=== PATIENT | male | born 2000 | race African-American/Black ===

== ENCOUNTER 2023-02-25 00:26 | Inpatient (IN) | payer SELFPAY ==
[2023-02-25] VITALS (8 sets, daily range): BP systolic 120–139; BP diastolic 69–82; PULSE 66–90; RESP 16–20; TEMP 35.8–36.7; O2SAT 96–100; BMI 30.8
[2023-02-25 01:02] LABS: MANUAL DIFF FLAG NO
[2023-02-25 01:04] LABS: Basophils Percent Auto 0.5 % (0-2); Eosinophils Absolute Auto 0.4 X10*3/uL (0.0-0.4); Eosinophils Percent Auto 6.3 % (0-4); Hematocrit 43.1 % (42.0-52.0); Imm Gran Abs Auto 0.01 X10*3/uL (0.00-0.03); Imm Gran Pct Auto 0.2 % (0.0-0.4); Lymphocytes Absolute Auto 1.6 X10*3/uL (1.2-4.9); Lymphocytes Percent Auto 26.7 % (20-40); Mean Corpuscular HGB Conc 32.5 g/dl (31.0-36.0); Mean Corpuscular Volume 86.2 fL (80.0-98.0); Mean Platelet Volume 9.7 fL (9.4-12.4); Monocytes Absolute Auto 0.3 X10*3/uL (0.1-1.2); Monocytes Percent Auto 4.4 % (2-11); Neutrophils Absolute Auto 3.6 x10*3/uL (2.0-8.3); Neutrophils Percent Auto 61.9 % (45-73); Platelet Count 196 X10*3/uL (160-400); Red Cell Distribution Width 13.8 % (11.0-16.0); White Blood Count 5.9 X10*3/uL (4.8-10.8)
[2023-02-25 01:24] LABS: Alanine Aminotransferase 64 U/L (0-40); Albumin Level 4.4 g/dL (3.5-5.0); Alkaline Phosphatase 60 U/L (39-117); Anion Gap 9 (12-20); Aspartate Amino Transferase 88 U/L (5-37); Bilirubin Direct 0.2 mg/dL (0.0-0.5); Bilirubin Total 0.4 mg/dL (0.0-1.0); Blood Urea Nitrogen 21 mg/dL (9-16); Calcium 9.2 mg/dL (8.4-10.2); Carbon Dioxide 29 mmol/L (22-29); Chloride 106 mmol/L (96-108); Creatinine Clr Calc Pharmacy 134.7; Estimated Glomerular Filt Rate > 60; Glucose Random 98 mg/dL (60-115); Lipase 18 U/L (8-78); Potassium 4.1 mmol/L (3.3-5.1); Sodium 140 mmol/L (135-145); Total Protein 7.2 g/dL (6.5-8.0)
--- NOTE | 2023-02-25 02:07 | ED_ITS ---
HPI - General Adult General Chief complaint: General Medical Stated complaint: Legs Hurting Time Seen by Provider: 02/25/23 02:07 Source: patient Mode of arrival: ambulatory Limitations: no limitations History of Present Illness HPI narrative: Patient 22 years or claiming that his been walking [place] for last few days today he walked more than 10 miles complaining of leg pain for last few days did not drink much water or had food patient is homeless no urinary complaint no substance abuse Related Data Allergies Allergy/AdvReac Type Severity Reaction Status Date / Time No Known Allergies Allergy Verified 02/25/23 00:47 Review of Systems Review of Systems: Yes all other systems are reviewed and are negative [facility] Social History Social History Advance Directives: No Advance Directives Information Provided: Yes Physical Exam ED Vital Signs: Vital Signs - 24 hr 02/25/23 00:42 02/25/23 02:07 Temperature 97.7 F 98.0 F Pulse Rate 90 81 Respiratory Rate 20 17 Blood Pressure 120/77 133/79 Pulse Oximetry 96 96 Oxygen Delivery Method Room Air BMI result Body Mass Index 30.8 Appearance: Alert. Oriented X3. No acute distress. Eyes: PERRLA, ENT: Pharynx normal. Oral Mucosa moist Neck: Normal inspection. Neck supple. CVS: Normal heart rate and rhythm. Pulses normal. Respiratory: No respiratory distress. Equal air entry bilateral, no wheezing/rales/rhonchi Abdomen: Soft and nontender. Bowel sounds are present, no mass palpable, no CVA tenderness Skin: Skin warm and dry. Normal skin color. Normal skin turgor. Extremities: No lower extremity edema. No calf tenderness Neuro: Oriented X 3. No motor deficit. No sensory deficit.No cerebellar signs , cranial nerves II-XII intact Medications Administered Generic Name Dose Route Start Last Admin Trade Name Freq PRN Reason Stop Dose Admin Enoxaparin Sodium 40 mg 02/25/23 02:30 02/25/23 03:12 Enoxaparin Sodium 40 Mg/0.4 Ml Syringe SUBCUT 40 mg Q24H JERRY Administration Sodium Chloride 1,000 mls @ 200 mls/hr 02/25/23 02:45 02/25/23 04:36 Ns IVCONT 02/25/23 07:44 200 mls/hr .Q5H JERRY Administration Discontinued Medications Generic Name Dose Route Start Last Admin Trade Name Shira PRN Reason Stop Dose Admin Sodium Chloride 1,000 mls @ 999 mls/hr 02/25/23 02:08 02/25/23 04:31 Ns IV 02/25/23 03:08 Infused .Q1H1M ONE Infusion Sodium Chloride 1,000 mls @ 999 mls/hr 02/25/23 02:35 02/25/23 04:31 Ns IV 02/25/23 03:35 Infused .Q1H1M ONE Infusion Medical Decision Making Medical Decision Making [facility] Narrative: Patient with rhabdomyolysis will admit patient for IV hydration Lab Data [facility] Lab Attestation statement: I reviewed the patient's lab results. 02/25/23 00:59 02/25/23 00:59 Labs: Lab Results 02/25/23 02/25/23 02/25/23 Range/Units 00:59 00:59 02:02 WBC 5.9 (4.8-10.8) X10*3/uL RBC 5.00 (4.60-5.80) X10*6/uL Hgb 14.0 (14.0-18.0) g/dl Hct 43.1 (42.0-52.0) % MCV 86.2 (80.0-98.0) fL MCH 28.0 (27.0-33.0) pg MCHC 32.5 (31.0-36.0) g/dl RDW 13.8 (11.0-16.0) % Plt Count 196 (160-400) X10*3/uL MPV 9.7 (9.4-12.4) fL Immature Gran % (Auto) 0.2 (0.0-0.4) % Neut % (Auto) 61.9 (45-73) % Lymph % (Auto) 26.7 (20-40) % [place] % (Auto) 4.4 (2-11) % Eos % (Auto) 6.3 H (0-4) % Baso % (Auto) 0.5 (0-2) % Lymph # (Auto) 1.6 (1.2-4.9) X10*3/uL [place] # (Auto) 0.3 (0.1-1.2) X10*3/uL Eos # (Auto) 0.4 (0.0-0.4) X10*3/uL Baso # (Auto) 0.0 (0.0-0.2) X10*3/uL Abs Immat Gran (auto) 0.01 (0.00-0.03) X10*3/uL Absolute Neuts (auto) 3.6 (2.0-8.3) x10*3/uL Absolute Nucleated RBC 0.000 (0.0-0.012) X10*3/uL Nucleated RBC % (auto) 0.0 (0.0-0.2) /100WBC Sodium 140 (135-145) mmol/L Potassium 4.1 (3.3-5.1) mmol/L Chloride 106 (96-108) mmol/L Carbon Dioxide 29 (22-29) mmol/L Anion Gap 9 L (12-20) BUN 21 H (9-16) mg/dL Creatinine 1.12 (0.5-1.4) mg/dL Estim Creat Clear Calc 134.7 Estimated GFR > 60 Random Glucose 98 (60-115) mg/dL Calcium 9.2 (8.4-10.2) mg/dL Total Bilirubin 0.4 (0.0-1.0) mg/dL Direct Bilirubin 0.2 (0.0-0.5) mg/dL AST 88 H (5-37) U/L ALT 64 H (0-40) U/L Alkaline Phosphatase 60 (39-117) U/L Total Creatine Kinase 3588 H (38-174) U/L Total Protein 7.2 (6.5-8.0) g/dL Albumin 4.4 (3.5-5.0) g/dL Lipase 18 (8-78) U/L Urine Color Yellow Urine Appearance Cloudy Urine pH 6.0 (5.0-9.0) Ur Specific [place] 1.020 (1.005-1.025) Urine Protein 100 (2+) H (Neg-Trace) mg/dL Urine Glucose (UA) Negative (Negative) mg/dL Urine Ketones Negative (Negative) mg/dL Urine Blood Trace H (Negative) Urine Nitrite Negative (Negative) Ur Leukocyte Esterase Negative (Negative) Urine RBC 0-2 (0-2) /HPF Urine WBC 6-10 H (0-5) /HPF Ur Squamous Epith Cells 0-2 (0-2) /HPF Urine Bacteria None Seen (None Seen) Hyaline Casts 0-2 (0-2) /LPF 02/25/23 02/25/23 02/25/23 Range/Units 02:39 02:39 02:39 WBC 4.6 L (4.8-10.8) X10*3/uL RBC 4.72 (4.60-5.80) X10*6/uL Hgb 13.5 L (14.0-18.0) g/dl Hct 40.2 L (42.0-52.0) % MCV 85.2 (80.0-98.0) fL MCH 28.6 (27.0-33.0) pg MCHC 33.6 (31.0-36.0) g/dl RDW 13.7 (11.0-16.0) % Plt Count 183 (160-400) X10*3/uL MPV 9.3 L (9.4-12.4) fL Immature Gran % (Auto) 0.0 (0.0-0.4) % Neut % (Auto) 57.8 (45-73) % Lymph % (Auto) 29.7 (20-40) % [place] % (Auto) 3.9 (2-11) % Eos % (Auto) 8.2 H (0-4) % Baso % (Auto) 0.4 (0-2) % Lymph # (Auto) 1.4 (1.2-4.9) X10*3/uL [place] # (Auto) 0.2 (0.1-1.2) X10*3/uL Eos # (Auto) 0.4 (0.0-0.4) X10*3/uL Baso # (Auto) 0.0 (0.0-0.2) X10*3/uL Abs Immat Gran (auto) 0.00 (0.00-0.03) X10*3/uL Absolute Neuts (auto) 2.7 (2.0-8.3) x10*3/uL Absolute Nucleated RBC 0.000 (0.0-0.012) X10*3/uL Nucleated RBC % (auto) 0.0 (0.0-0.2) /100WBC Sodium 140 (135-145) mmol/L Potassium 3.6 (3.3-5.1) mmol/L Chloride 109 H (96-108) mmol/L Carbon Dioxide 25 (22-29) mmol/L Anion Gap 10 L (12-20) BUN 20 H (9-16) mg/dL Creatinine 0.95 (0.5-1.4) mg/dL Estim Creat Clear Calc 158.8 Estimated GFR > 60 Random Glucose 118 H (60-115) mg/dL Calcium 8.8 (8.4-10.2) mg/dL Total Bilirubin (0.0-1.0) mg/dL Direct Bilirubin (0.0-0.5) mg/dL AST (5-37) U/L ALT (0-40) U/L Alkaline Phosphatase (39-117) U/L Total Creatine Kinase 3053 H (38-174) U/L Total Protein (6.5-8.0) g/dL Albumin (3.5-5.0) g/dL Lipase (8-78) U/L Urine Color Urine Appearance Urine pH (5.0-9.0) Ur Specific [place] (1.005-1.025) Urine Protein (Neg-Trace) mg/dL Urine Glucose (UA) (Negative) mg/dL Urine Ketones (Negative) mg/dL Urine Blood (Negative) Urine Nitrite (Negative) Ur Leukocyte Esterase (Negative) Urine RBC (0-2) /HPF Urine WBC (0-5) /HPF Ur Squamous Epith Cells (0-2) /HPF Urine Bacteria (None Seen) Hyaline Casts (0-2) /LPF Discharge Plan Discharge Clinical Impression: Rhabdomyolysis Patient Disposition: Admitted As Inpatient
[2023-02-25 02:09] LABS: Appearance Urine Cloudy; Color Urine Yellow; Glucose Urine UA Negative (Negative); Leukocyte Esterase Urine Negative (Negative); Nitrite Urine Negative (Negative); UMIC TRIGGER UACC YES; Urine Blood Trace (Negative); Urine Ketones Negative (Negative); Urine Protein 100 (2+) mg/dL (Neg-Trace)
[2023-02-25 02:11] LABS: Bacteria Urine None Seen (None Seen); Hyaline Casts Urine 0-2 /LPF (0-2); RBC Urine 0-2 /HPF (0-2); Squamous Epithelial Cell Urine 0-2 /HPF (0-2); UACC Culture Trigger YES
[2023-02-25] MEDS: 0.9 % Sodium Chloride 1,000 ML 999 ML IV ×2 (02:22→03:12)
--- NOTE | 2023-02-25 02:30 | P.HPHOSP_ITS ---
History of Present Illness Date of Service: 02/25/23 Chief Complaint: Bodyache This is a 22-year-old male with no pertinent past medical history and not on prescription medications who presents to the emergency department for evaluation of body ache and leg ache. Patient states it started on the day of presentati on. Patient states that he walked for more than 5 hours today without eating or drinking. Apparently he walked from [place] to [place]. Patient denies fever, chills, chest discomfort, shortness of breath, palpitations, abdominal pain, changes in urinary or bowel habits. Denied illicit drug use, alcohol use, tobacco use. In the emergency department, CK was found to be significantly elevated Review of Systems Constitutional: Constitutional: Reports fatigue, Reports lethargy and Reports malaise Cardiovascular: Cardiovascular: Reports no additional cardiovascular complaints Respiratory: Respiratory: Reports no additional respiratory complaints Gastrointestinal: Gastrointestinal: Reports no additional gastrointestinal complaints Genitourinary: Genitourinary: Reports no additional male genitourinary complaints Musculoskeletal: Musculoskeletal: Reports myalgias Endocrine: Endocrine: Reports fatigue PMFSH Pertinent family history: No family history of early CAD Social History Advance Directives: No Advance Directives Information Provided: Yes Meds Allergies Allergy/AdvReac Type Severity Reaction Status Date / Time No Known Allergies Allergy Verified 02/25/23 00:47 Active Medications: Current Medications Sodium Chloride (Ns) 1,000 mls @ 999 mls/hr IV .Q1H1M ONE Stop: 02/25/23 03:08 Last Admin: 02/25/23 02:22 Dose: 999 mls/hr Physical Exam Vital Signs and Narrative: Vital Signs: Last Vital Signs Temp 98.0 F 02/25/23 02:07 Pulse 81 02/25/23 02:07 Resp 17 02/25/23 02:07 BP 133/79 02/25/23 02:07 Pulse Ox 96 02/25/23 02:07 O2 Del Method Room Air 02/25/23 00:42 BMI result Body Mass Index 30.8 Young male lying in bed in no distress Neck supple, no JVD Regular rate and rhythm, S1-S2 heard Regular breath sounds bilaterally, no wheezing or crackles appreciated Abdomen soft nontender, no guarding, no rigidity Patient is awake, alert and oriented to self, place, time and person ; no focal motor deficit Psych: Normal mood No pedal edema Results Labs 02/25/23 00:59 02/25/23 00:59 Labs: Laboratory Results - last 24 hr 02/25/23 02/25/23 02/25/23 00:59 00:59 02:02 MCV 86.2 MCH 28.0 MCHC 32.5 RDW 13.8 Plt Count 196 MPV 9.7 Immature Gran % (Auto) 0.2 Neut % (Auto) 61.9 Lymph % (Auto) 26.7 [place] % (Auto) 4.4 Eos % (Auto) 6.3 H Baso % (Auto) 0.5 Lymph # (Auto) 1.6 [place] # (Auto) 0.3 Eos # (Auto) 0.4 Baso # (Auto) 0.0 Abs Immat Gran (auto) 0.01 Absolute Neuts (auto) 3.6 Absolute Nucleated RBC 0.000 Nucleated RBC % (auto) 0.0 Anion Gap 9 L Estim Creat Clear Calc 134.7 Estimated GFR > 60 Random Glucose 98 Calcium 9.2 Total Bilirubin 0.4 Direct Bilirubin 0.2 AST 88 H ALT 64 H Alkaline Phosphatase 60 Total Creatine Kinase 3588 H Total Protein 7.2 Albumin 4.4 Lipase 18 Urine Color Yellow Urine Appearance Cloudy Urine pH 6.0 Ur Specific [place] 1.020 Urine Protein 100 (2+) H Urine Glucose (UA) Negative Urine Ketones Negative Urine Blood Trace H Urine Nitrite Negative Ur Leukocyte Esterase Negative Urine RBC 0-2 Urine WBC 6-10 H Ur Squamous Epith Cells 0-2 Urine Bacteria None Seen Hyaline Casts 0-2 Assessment and Plan (1) Rhabdomyolysis: Status: Acute Plan This is a 22-year-old male with no pertinent past medical history and not on prescription medications who presents to the emergency department for evaluation of body ache and leg ache. #. Rhabdomyolysis, nontraumatic, exertional: Will admit patient and continue IV fluid resuscitation.? Symptomatic treatment.? Repeat CK in a.m. #. Transaminitis due to above DVT prophylaxis: Lovenox 40 mg daily Full code Regular diet Admit as inpatient and will require two night minimum hospital stay for IV fluid resuscitation and close monitoring of CPK Time Spent With Patient Time: Total time managing care of this patient today ____ minutes. Quality Stroke Does the patient have a stroke diagnosis?: No VTE Prior VTE?: No VTE Risk Level:: Medical - moderate - high VTE Device Contraindication: Treatment Not Indicated VTE Drug Contraindication: N/A - Med Ordered
[2023-02-25 02:43] LABS: MANUAL DIFF FLAG NO
[2023-02-25 02:44] LABS: Basophils Percent Auto 0.4 % (0-2); Eosinophils Absolute Auto 0.4 X10*3/uL (0.0-0.4); Eosinophils Percent Auto 8.2 % (0-4); Hematocrit 40.2 % (42.0-52.0); Hemoglobin 13.5 g/dl (14.0-18.0); Lymphocytes Absolute Auto 1.4 X10*3/uL (1.2-4.9); Lymphocytes Percent Auto 29.7 % (20-40); Mean Corpuscular HGB Conc 33.6 g/dl (31.0-36.0); Mean Corpuscular Hemoglobin 28.6 pg (27.0-33.0); Mean Corpuscular Volume 85.2 fL (80.0-98.0); Mean Platelet Volume 9.3 fL (9.4-12.4); Monocytes Absolute Auto 0.2 X10*3/uL (0.1-1.2); Monocytes Percent Auto 3.9 % (2-11); Neutrophils Absolute Auto 2.7 x10*3/uL (2.0-8.3); Neutrophils Percent Auto 57.8 % (45-73); Platelet Count 183 X10*3/uL (160-400); Red Blood Count 4.72 X10*6/uL (4.60-5.80); Red Cell Distribution Width 13.7 % (11.0-16.0); White Blood Count 4.6 X10*3/uL (4.8-10.8)
--- NOTE | 2023-02-25 02:54 | MHC.EDTECH ---
pt ambulated to restroom steady to give a urine
[2023-02-25 03:08] LABS: Anion Gap 10 (12-20); Blood Urea Nitrogen 20 mg/dL (9-16); Calcium 8.8 mg/dL (8.4-10.2); Carbon Dioxide 25 mmol/L (22-29); Chloride 109 mmol/L (96-108); Creatinine Clr Calc Pharmacy 158.8; Estimated Glomerular Filt Rate > 60; Glucose Random 118 mg/dL (60-115); Potassium 3.6 mmol/L (3.3-5.1); Sodium 140 mmol/L (135-145)
[2023-02-25] MEDS: Enoxaparin Sodium 40 MG/0.4 ML SYRINGE SUBCUT (03:12)
[2023-02-25] MEDS: 0.9 % Sodium Chloride 1,000 ML 200 ML IVCONT (04:36)
--- NOTE | 2023-02-25 08:30 | PC.NURSE ---
pt is alert and oriented, but pt appears withdrawn when conversing with this rn, some odd behaviors at times for insistence awkward smiling/laugh and skin appropriate for ethnicity, respirations even and unlabored, ls clear, pt reports bilateral leg pain 6/10, no visible swelling to the lower extremities. vs stable
[2023-02-25] MEDS: KCl 20 mEq in 5 % Dex/Lact Rin 20 MEQ/1,000 ML IV.SOLN 150 MEQ IVCONT ×3 (09:02→21:30)
[2023-02-25 09:51] LABS: Amphetamine Screen Urine Not Detected (Not Detect); Barbiturates, Urine Not Detected (Not Detect); Benzodiazepines Screen Urine Not Detected (Not Detect); Cannabinoid Screen Urine Not Detected (Not Detect); Cocaine Screen Urine Not Detected (Not Detect); Fentanyl, urine Not Detected (Not Detect); Opiate Screen Urine Not Detected (Not Detect); Phencyclidine Screen Urine Not Detected (Not Detect)
--- NOTE | 2023-02-25 10:45 | MHC.CM.PN ---
Addendum entered by Baylee Rodriguez 02/25/23 16:25: CM ATTEMPTED TO MAKE A REFERRAL TO [facility] CM SPOKE TO [facility] [phone] WHO REPORTED THEY WERE UNABLE TO HOLD BEDS AND REFERRAL MUST BE MADE ON THE DAY OF DC. SHE INDICATED CALLING AT 0930 HOURS WOULD BE BEST BEDS MAY BE FULL LATER IN THE DAY PER PN, PT LIKELY TO DC TOMORROW CM WILL REFER AT THAT TIME Original Note: PT REPORTS HE IS HOMELESS HE SAYS HE IS FROM THE [place] AND JUST CAME TO [place] HE REPORTS WALKING HERE HE SAYS HE HAS NO FAMILY OR FRIENDS HERE OR IN [place] HE HAS NO PCP HE SAYS HE HAS [place] HOWEVER IT IS NOT SHOWING UP IN HIS DEMOGRAPHICS REFERRAL SENT TO [facility] DCP TBD PT REPORTS HE MAY BE WILLING TO GO TO A [facility], BUT IT IS NOT NECESSARY HE PRESENTS VERY GUARDED AND PROVIDES LITTLE HISTORY REFERRALS WILL BE MADE TO [facility] IN CASE PT IS INTERESTED PT DID ASK FOR FOOD CM CALLED FOOD SERVICES AND REQUESTED A SANDWICH
--- NOTE | 2023-02-25 12:30 | PC.NURSE ---
called for report but awaiting a call back
--- NOTE | 2023-02-25 12:37 | PC.NURSE ---
report given to med/neurosurgeon
[2023-02-25] MEDS: Acetaminophen 325 MG TABLET 650 MG PO (14:01)
--- NOTE | 2023-02-25 14:24 | HO.PM.IMPN ---
Subjective Subjective Date of Service: 02/25/23 Interval History: Complaining of generalized ache mostly lower extremity denies fever chills, no nausea no vomiting walked from [place] to [place] , homeless, denies illicit drug use, not on home medications.. Review of Systems Review of Systems: Yes all other systems are reviewed and are negative Physical Exam Vital Signs: Vital Signs: Last Vital Signs Temp 98.1 F 02/25/23 13:26 Pulse 66 02/25/23 13:26 Resp 16 02/25/23 13:26 BP 139/69 02/25/23 13:26 Pulse Ox 98 02/25/23 13:26 O2 Del Method Room Air 02/25/23 13:26 BMI result Body Mass Index 30.8 Const: Other: General awake alert x3,in no acute distress. Neck supple no JVD. CVS regular rate rhythm, Respiratory lungs clear to auscultation, no respiratory distress, no wheeze, no rhonchi. Gastrointestinal abdomen soft, nontender, bowel sounds audible, no guarding , no rigidity. Extremities no edema. Neuro nonfocal Skin no rash Objective Data Active Medications Acetaminophen (Acetaminophen 325 Mg Tablet) 650 mg PO Q6H PRN PRN Reason: Pain, Mild (Pain Scale 1-3) Last Admin: 02/25/23 14:01 Dose: 650 mg Documented By: ESTRELLA Enoxaparin Sodium (Enoxaparin Sodium 40 Mg/0.4 Ml Syringe) 40 mg SUBCUT Q24H [facility] Last Admin: 02/25/23 03:12 Dose: 40 mg Documented By: ZOE Potassium Cl/Dextrose/Lact Ringer's (Kcl 20 Meq In 5 % Dex/Lact Rin) 20 meq in 1,000 mls @ 150 mls/hr IVCONT .Q6H40M [facility] Last Admin: 02/25/23 13:58 Dose: 150 mls/hr Documented By: ESTRELLA Melatonin (Melatonin 3 Mg Tablet) 6 mg PO BEDTIME PRN PRN Reason: Insomnia Ondansetron HCl (Ondansetron Hcl 4 Mg/2 Ml Vial) 4 mg IVPUSH Q8H PRN PRN Reason: Nausea and Vomiting Sodium Chloride (0.9 % Sodium Chloride Flush 3 Ml Syringe) 3 ml IVFLUSH QSHIFT [facility] Last Admin: 02/25/23 13:58 Dose: Not Given Documented By: ESTRELLA Non-Admin Reason: See Note Labs 02/25/23 02:39 02/25/23 02:39 Labs: Laboratory Results - last 24 hr 02/25/23 02/25/23 02/25/23 00:59 00:59 02:02 MCV 86.2 MCH 28.0 MCHC 32.5 RDW 13.8 Plt Count 196 MPV 9.7 Immature Gran % (Auto) 0.2 Neut % (Auto) 61.9 Lymph % (Auto) 26.7 [place] % (Auto) 4.4 Eos % (Auto) 6.3 H Baso % (Auto) 0.5 Lymph # (Auto) 1.6 [place] # (Auto) 0.3 Eos # (Auto) 0.4 Baso # (Auto) 0.0 Abs Immat Gran (auto) 0.01 Absolute Neuts (auto) 3.6 Absolute Nucleated RBC 0.000 Nucleated RBC % (auto) 0.0 Anion Gap 9 L Estim Creat Clear Calc 134.7 Estimated GFR > 60 Random Glucose 98 Calcium 9.2 Total Bilirubin 0.4 Direct Bilirubin 0.2 AST 88 H ALT 64 H Alkaline Phosphatase 60 Total Creatine Kinase 3588 H Total Protein 7.2 Albumin 4.4 Lipase 18 Urine Color Yellow Urine Appearance Cloudy Urine pH 6.0 Ur Specific [place] 1.020 Urine Protein 100 (2+) H Urine Glucose (UA) Negative Urine Ketones Negative Urine Blood Trace H Urine Nitrite Negative Ur Leukocyte Esterase Negative Urine RBC 0-2 Urine WBC 6-10 H Ur Squamous Epith Cells 0-2 Urine Bacteria None Seen Hyaline Casts 0-2 Urine Opiates Screen Urine Fentanyl Screen Ur Barbiturates Screen Ur Phencyclidine Scrn Ur Amphetamines Screen U Benzodiazepines Scrn Urine Cocaine Screen U Marijuana (THC) Screen 02/25/23 02/25/23 02/25/23 02:39 02:39 02:39 MCV 85.2 MCH 28.6 MCHC 33.6 RDW 13.7 Plt Count 183 MPV 9.3 L Immature Gran % (Auto) 0.0 Neut % (Auto) 57.8 Lymph % (Auto) 29.7 [place] % (Auto) 3.9 Eos % (Auto) 8.2 H Baso % (Auto) 0.4 Lymph # (Auto) 1.4 [place] # (Auto) 0.2 Eos # (Auto) 0.4 Baso # (Auto) 0.0 Abs Immat Gran (auto) 0.00 Absolute Neuts (auto) 2.7 Absolute Nucleated RBC 0.000 Nucleated RBC % (auto) 0.0 Anion Gap 10 L Estim Creat Clear Calc 158.8 Estimated GFR > 60 Random Glucose 118 H Calcium 8.8 Total Bilirubin Direct Bilirubin AST ALT Alkaline Phosphatase Total Creatine Kinase 3053 H Total Protein Albumin Lipase Urine Color Urine Appearance Urine pH Ur Specific [place] Urine Protein Urine Glucose (UA) Urine Ketones Urine Blood Urine Nitrite Ur Leukocyte Esterase Urine RBC Urine WBC Ur Squamous Epith Cells Urine Bacteria Hyaline Casts Urine Opiates Screen Urine Fentanyl Screen Ur Barbiturates Screen Ur Phencyclidine Scrn Ur Amphetamines Screen U Benzodiazepines Scrn Urine Cocaine Screen U Marijuana (THC) Screen 02/25/23 09:11 MCV MCH MCHC RDW Plt Count MPV Immature Gran % (Auto) Neut % (Auto) Lymph % (Auto) [place] % (Auto) Eos % (Auto) Baso % (Auto) Lymph # (Auto) [place] # (Auto) Eos # (Auto) Baso # (Auto) Abs Immat Gran (auto) Absolute Neuts (auto) Absolute Nucleated RBC Nucleated RBC % (auto) Anion Gap Estim Creat Clear Calc Estimated GFR Random Glucose Calcium Total Bilirubin Direct Bilirubin AST ALT Alkaline Phosphatase Total Creatine Kinase Total Protein Albumin Lipase Urine Color Urine Appearance Urine pH Ur Specific [place] Urine Protein Urine Glucose (UA) Urine Ketones Urine Blood Urine Nitrite Ur Leukocyte Esterase Urine RBC Urine WBC Ur Squamous Epith Cells Urine Bacteria Hyaline Casts Urine Opiates Screen Not Detected Urine Fentanyl Screen Not Detected Ur Barbiturates Screen Not Detected Ur Phencyclidine Scrn Not Detected Ur Amphetamines Screen Not Detected U Benzodiazepines Scrn Not Detected Urine Cocaine Screen Not Detected U Marijuana (THC) Screen Not Detected Assessment and Plan (1) Rhabdomyolysis: Status: Acute Plan 22-year-old male with no pertinent past medical history and not on prescription medications who presents to the emergency department for evaluation of body ache and leg ache. #.?Rhabdomyolysis, nontraumatic, exertional: Walked 10 hours, is homeless complaining of persistent bilateral leg discomfort and, continue IV fluids follow CPK #.?Transaminitis due to above, no abdominal pain tolerating diet no nausea vomiting follow LFTs DVT prophylaxis: Lovenox 40 mg daily Disposition homeless, informed porter sample case for possible shelters Full code Regular diet Patient will need continued inpatient hospitalization for IV fluid resuscitation and close monitoring of CPK Time Spent With Patient Time: Total time managing care of this patient today ____ minutes. Quality Stroke Does the patient have a stroke diagnosis?: No VTE Prior VTE?: No VTE Risk Level:: Medical - moderate - high VTE Device Contraindication: Treatment Not Indicated VTE Drug Contraindication: N/A - Med Ordered
[2023-02-26] MEDS: Enoxaparin Sodium 40 MG/0.4 ML SYRINGE SUBCUT (01:14)
[2023-02-26] MEDS: KCl 20 mEq in 5 % Dex/Lact Rin 20 MEQ/1,000 ML IV.SOLN 150 MEQ IVCONT (03:06)
[2023-02-26 03:44] VITALS: BP 141/97; PULSE 64; RESP 16; TEMP 36; O2SAT 96
[2023-02-26 08:00] VITALS: BP 118/69; PULSE 65; RESP 18; TEMP 35.7; O2SAT 99
[2023-02-26 08:16] LABS: Alanine Aminotransferase 52 U/L (0-40); Albumin Level 4.4 g/dL (3.5-5.0); Alkaline Phosphatase 53 U/L (39-117); Anion Gap 14 (12-20); Aspartate Amino Transferase 49 U/L (5-37); Bilirubin Direct 0.2 mg/dL (0.0-0.5); Bilirubin Total 0.5 mg/dL (0.0-1.0); Blood Urea Nitrogen 11 mg/dL (9-16); Calcium 9.5 mg/dL (8.4-10.2); Carbon Dioxide 24 mmol/L (22-29); Chloride 105 mmol/L (96-108); Creatinine Clr Calc Pharmacy 169.5; Estimated Glomerular Filt Rate > 60; Glucose Random 58 mg/dL (60-115); Sodium 139 mmol/L (135-145); Total Protein 7.4 g/dL (6.5-8.0)
--- NOTE | 2023-02-26 09:17 | MHC.CM.PN ---
THIS ELECTRIC METER TESTER HELPER MET WITH PATIENT WHO ASKED FOR A SHIRT AND UNDERWEAR . PATIENT HAS WHAT COULD BE FOUND FOR TOP, AND GIVEN HOSPITAL UNDERPANTS WHEN ASKED IF PATIENT IS FROM [place] OR [facility], HE REPLIES THIS ARE WHEN ASKED IF PATIENT WOULD LIKE TO REMAIN ONE MORE DAY UNTIL CLOTHING AND TRANSPORT CAN BE ARRANGED, HE DENIES PATIENT STATES THAT HE IS READY TO LEAVE TODAY T/W ASKED AGAIN IF PATIENT FEELS SAFE IN THE COMMUNITY, TO WHICH HE REPLIES YES RN AND MD AWARE
[2023-02-26 10:08] LABS: Glucose, Whole Blood 89 mg/dL (60-115)
--- NOTE | 2023-02-26 10:25 | MHC.CM.PN ---
PATIENT GIVEN BUS PASSES TO TRANSPORT TO [place]. PATIENT DENIES ANYONE PICKING HIM UP HE DOES NOT OFFER ANY ADDITONAL INFORMATION DESPITE STAFF ATTEMPTS TO DISCUSS DC PLANS AND PATIENT SAFETY
--- NOTE | 2023-02-26 10:34 | P.DS_ITS ---
DS: Providers Provider Date of Service: 02/26/23 Date of admission: 02/25/23 02:28 Primary care physician: Unknown Physician DS: Diagnosis Discharge Diagnosis (1) Rhabdomyolysis: Status: Acute DS: Summary Hospital Course Hospital Course: History of presenting illness: Date of Service: 02/25/23 Chief Complaint: Bodyache This is a 22-year-old male with no pertinent past medical history and not on prescription medications who presents to the emergency department for evaluation of body ache and leg ache.? Patient states it started on the day of presentation.? Patient states that he walked for more than 5 hours today without eating or drinking.? Apparently he walked from [place] to [place].? Patient denies fever, chills, chest discomfort, shortness of breath, palpitations, abdominal pain, changes in urinary or bowel habits.? Denied illicit drug use, alcohol use, tobacco use. In the emergency department, CK was found to be significantly elevated. Hospital course: 22-year-old male with no pertinent past medical history and not on prescription medications who presents to the emergency department for evaluation of body ache and leg ache. #.? Presented with generalized body ache and leg pain diagnosed to have Rhabdomyolysis, nontraumatic, exertional, likely due to walking 10 hours treated with IV fluids CPK improved to 1597, patient is feeling better leg pain has resolved wishes to be discharged home, recommend to avoid prolonged walk-in strenuous exercise recommend to drink plenty of fluids and stay hydrated patient noted to have transaminitis , LFTs are trending down patient is tolerating diet with no nausea, no vomiting, no further workup is warranted also likely due to dehydration. Urine toxicology negative for illicit drug use. Time Spent with Patient Time attestation: Total time managing care of this patient today ____ minutes. Discharge coordination time: Greater than 30 minutes Quality: Safe Use of Opioids Does Pt have an Active Cancer Diagnosis on the Problem List?: No Quality: Stroke Does the patient have a stroke diagnosis?: No Physical Exam Vital Signs: Vital Signs: Last Vital Signs Temp 96.3 F L 02/26/23 08:00 Pulse 65 02/26/23 08:00 Resp 18 02/26/23 08:00 BP 118/69 02/26/23 08:00 Pulse Ox 99 02/26/23 08:00 O2 Del Method Room Air 02/26/23 08:00 BMI result Body Mass Index 30.8 Const: Other: General awake alert x3,in no acute distress.? Neck? supple no JVD. CVS? regular rate rhythm, Respiratory lungs clear to auscultation, no respiratory distress, no wheeze, no rhonchi. Gastrointestinal abdomen soft, nontender, bowel sounds audible, no guarding , no rigidity. Extremities no edema. Musculoskeletal normal examination, no calf tenderness. Neuro nonfocal. Skin no rash. DS: Data Data Completed and Pending Labs on day of discharge: Laboratory Results - last 24 hr 02/26/23 02/26/23 07:19 10:02 Sodium 139 Potassium 4.0 Chloride 105 Carbon Dioxide 24 Anion Gap 14 BUN 11 Creatinine 0.89 Estim Creat Clear Calc 169.5 Estimated GFR > 60 POC Glucose 89 Random Glucose 58 L* Calcium 9.5 D Total Bilirubin 0.5 Direct Bilirubin 0.2 AST 49 H ALT 52 H Alkaline Phosphatase 53 Total Creatine Kinase 1597 H Total Protein 7.4 Albumin 4.4 Discharge Plan Discharge Anticipated Discharge Date/Time: 02/26/23 10:02 Patient Disposition: Home, Self-Care Discharge Diagnosis: Rhabdomyolysis Transaminitis Referrals: Physician,Unknown J [Primary Care Provider] - 1 Week Discharge Medications: No Action No Known Home Meds Discharge Orders: Discharge Order (Routine); Ordered 02/26/23 Ordered By: Cuong Zamarripa Diet: Advance to usual diet Activity on Discharge: As tolerated Stand Alone Forms: Patient Portal Discharge page Care Plan Goals: Drink plenty of fluids/avoid strenuous exercise and prolonged walks/do not skip meals Health Concerns: Return to hospital if noted to have lightheadedness dizziness,or excessive sweating Plan of Treatment: Follow-up with primary care physician. Assessment: As above
== END 2023-02-26 10:45 | disposition home or self-care (01) | DRG 558 ==
LOC: HO.ED 05:10 → HO.EDOVER 07:07 → HO.S3 12:26
PROVIDERS: Admitting Provider Student in an Organized Health Care Education/Training Program; Emergency Provider Internal Medicine; Visit Provider Hospitalist
DX: M62.82 Rhabdomyolysis (principal); Z59.02 Unsheltered homelessness; Z87.891 Personal history of nicotine dependence
CPT/HCPCS: 36415; 80048; 80076; 80307; 81001; 82550; 82947; 83690; 85025; 87086; 99285; J1650